=== PATIENT | male | born 1975 | race Two or more races ===

== ENCOUNTER 2017-10-23 03:46 | Emergency (ER) | payer OTHER ==
[~2017-10-23] VITALS: Ht 167.6 cm; Wt 90.7 kg
[2017-10-23] MEDS ORDERED: NORVASC5 MG (03:56)
[2017-10-23] MEDS ORDERED: AVAPRO300 MG (03:56)
== END 2017-10-23 04:43 | disposition home or self-care (01) ==
LOC: ER 03:46
DX: T54.91XA Toxic effect of unspecified corrosive substance, accidental (unintentional), initial encounter (principal); J68.8 Other respiratory conditions due to chemicals, gases, fumes and vapors; Y93.E9 Activity, other interior property and clothing maintenance; Y92.091 Bathroom in other non-institutional residence as the place of occurrence of the external cause; Y99.8 Other external cause status

== ENCOUNTER 2023-11-21 02:40 | Emergency (ER) | payer OTHER ==
[~2023-11-21] VITALS: Ht 167.6 cm; Wt 95.3 kg
[~2023-11-21 02:40] MED LIST: AVAPRO300 MG; NORVASC5 MG
[2023-11-21] MEDS ORDERED: HYOSCYAMINE SULFATE 0.125 MG TAB.SUBL SL STA (03:11)
[2023-11-21] MEDS ORDERED: METOCLOPRAMIDE HCL 5 MG/ML VIAL IM STA (03:12)
[2023-11-21] MEDS ORDERED: FAMOTIDINE/PF 20 MG/2 ML VIAL IV PUSH STA (03:14)
[2023-11-21] MEDS ORDERED: FAMOtidine 200mg/20ml VIAL ONE (03:18)
[2023-11-21] MEDS ORDERED: HYOSCYAMINE SULFATE 0.125 MG TAB.SUBL ONE (03:18)
[2023-11-21] MEDS ORDERED: METOCLOPRAMIDE HCL 5 MG/ML VIAL ONE (03:18)
== END 2023-11-21 05:53 | disposition home or self-care (01) ==
LOC: ER 02:41
DX: K29.70 Gastritis, unspecified, without bleeding (principal); R14.3 Flatulence